=== PATIENT | male | born 1970 | race Caucasian/White ===

== ENCOUNTER 2017-01-03 13:04 | Emergency (ER) | payer OTHER ==
[2017-01-03 13:36] VITALS: RESP 18
[2017-01-03] MEDS ORDERED: SODIUM CHLORIDE 0.9% 500 ML IV STA (13:51)
--- NOTE | 2017-01-03 13:55 | ED ---
General Adult HPI - General Chief complaint: Weakness Stated complaint: Weakness/Dizziness/Tachycardia Time Seen by Provider: 01/03/17 13:05 Source: patient, RN notes reviewed Mode of arrival: wheelchair Limitations: no limitations - History of Present Illness Initial comments: This is a 46-year-old male who states today he woke up late for to drink 3 cups of coffee normally he doesn't have any coffee but if he has one of one cup at a time. Patient states when he got to work after a few hours he felt kind of disease and had some palpitations and he thought he might follow her so he sat down. Patient states he did not think he was going to pass out. Patient states he then got some tingling in his fingertips on both hands and decided to come to the emergency department. Patient states currently he is asymptomatic. Patient denies any chest pain patient denies any difficulty breathing or shortness of breath. Patient denies any headache patient denies numbness weakness. Patient denies abdominal pain patient denies nausea vomiting diarrhea. Patient denies any recent fever chills or cough - Related Data Home Medications Medication Instructions Recorded Confirmed No Known Home Medications [No 01/03/17 01/03/17 Known Home Medications] Allergies Allergy/AdvReac Type Severity Reaction Status Date / Time No Known Allergies Allergy Verified 01/03/17 13:56 Review of Systems ROS Statement: Those systems with pertinent positive or pertinent negative responses have been documented in the HPI. ROS Other: All systems not noted in ROS Statement are negative. Past Medical History Past Medical History: Hypertension Additional Past Medical History / Comment(s): left knee pain, chronic back pain History of Any Multi-Drug Resistant Organisms: None Reported Additional Past Surgical History / Comment(s): rotator cuff right shoulder Past Psychological History: No Psychological Hx Reported Smoking Status: Former smoker Past Alcohol Use History: Occasional Past Drug Use History: None Reported General Exam - General Exam Comments Initial Comments: GENERAL: Patient is well-developed and well-nourished. Patient is nontoxic and well- hydrated and is in no acute distress. ENT: Neck is soft and supple. No significant lymphadenopathy is noted. Oropharynx is clear. Moist mucous membranes. Neck has full range of motion without eliciting any pain. EYES: The sclera were anicteric and conjunctiva were pink and moist. Extraocular movements were intact and pupils were equal round and reactive to light. Eyelids were unremarkable. PULMONARY: Unlabored respirations. Good breath sounds bilaterally. No audible rales rhonchi or wheezing was noted. CARDIOVASCULAR: There is a regular rate and rhythm without any murmurs gallops or rubs. ABDOMEN: Soft and nontender with normal bowel sounds. No palpable organomegaly was noted. There is no palpable pulsatile mass. SKIN: Skin is clear with no lesions or rashes and otherwise unremarkable. NEUROLOGIC: Patient is alert and oriented x3. Cranial nerves II through XII are grossly intact. Motor and sensory are also intact. Normal speech, volume and content. Symmetrical smile. MUSCULOSKELETAL: Normal extremities with adequate strength and full range of motion. No lower extremity swelling or edema. No calf tenderness. LYMPHATICS: No significant lymphadenopathy is noted PSYCHIATRIC: Normal psychiatric evaluation. Normal interpersonal interactions appears functionally intact in deals appropriately with others. No signs of depression. Mildly anxious Limitations: no limitations Course Vital Signs 01/03/17 01/03/17 13:30 14:05 Temperature 98.8 F Pulse Rate 68 65 Respiratory 18 18 Rate Blood Pressure 139/85 140/83 O2 Sat by Pulse 98 96 Oximetry Medical Decision Making - Medical Decision Making EKG shows a normal sinus rhythm at 62 bpm MS interval 240 QRS is 106 QT intervals 404 QTC is 410. Patient's EKG shows no ST segment elevation or depression. Chest x-ray shows no acute abnormality - Lab Data Result diagrams: 01/03/17 14:00 01/03/17 14:00 Lab Results 01/03/17 01/03/17 01/03/17 Range/Units 14:00 14:00 14:00 WBC 4.7 (3.8-10.6) k/uL RBC 4.67 (4.30-5.90) m/uL Hgb 14.9 (13.0-17.5) gm/dL Hct 42.2 (39.0-53.0) % MCV 90.5 (80.0-100.0) fL MCH 32.0 (25.0-35.0) pg MCHC 35.3 (31.0-37.0) g/dL RDW 12.5 (11.5-15.5) % Plt Count 147 L (150-450) k/uL Neutrophils % 65 % Lymphocytes % 24 % Monocytes % 7 % Eosinophils % 1 % Basophils % 1 % Neutrophils # 3.0 (1.3-7.7) k/uL Lymphocytes # 1.1 (1.0-4.8) k/uL Monocytes # 0.3 (0-1.0) k/uL Eosinophils # 0.0 (0-0.7) k/uL Basophils # 0.0 (0-0.2) k/uL PT (9.0-12.0) sec INR (<1.2) APTT (22.0-30.0) sec Sodium 141 (137-145) mmol/L Potassium 4.1 (3.5-5.1) mmol/L Chloride 109 H (98-107) mmol/L Carbon Dioxide 24 (22-30) mmol/L Anion Gap 8 mmol/L BUN 16 (9-20) mg/dL Creatinine 0.98 (0.66-1.25) mg/dL Est GFR (MDRD) Af Amer >60 (>60 ml/min/1.73 sqM) Est GFR (MDRD) Non-Af >60 (>60 ml/min/1.73 sqM) Glucose 82 (74-99) mg/dL Calcium 9.0 (8.4-10.2) mg/dL Magnesium 1.8 (1.6-2.3) mg/dL Total Bilirubin 0.3 (0.2-1.3) mg/dL AST 35 (17-59) U/L ALT 39 (21-72) U/L Alkaline Phosphatase 50 (38-126) U/L Total Creatine Kinase 71 (55-170) U/L CK-MB (CK-2) 0.8 (0.0-2.4) ng/mL CK-MB (CK-2) Rel Index 1.1 Troponin I <0.012 (0.000-0.034) ng/mL Total Protein 6.5 (6.3-8.2) g/dL Albumin 4.1 (3.5-5.0) g/dL 01/03/17 Range/Units 14:00 WBC (3.8-10.6) k/uL RBC (4.30-5.90) m/uL Hgb (13.0-17.5) gm/dL Hct (39.0-53.0) % MCV (80.0-100.0) fL MCH (25.0-35.0) pg MCHC (31.0-37.0) g/dL RDW (11.5-15.5) % Plt Count (150-450) k/uL Neutrophils % % Lymphocytes % % Monocytes % % Eosinophils % % Basophils % % Neutrophils # (1.3-7.7) k/uL Lymphocytes # (1.0-4.8) k/uL Monocytes # (0-1.0) k/uL Eosinophils # (0-0.7) k/uL Basophils # (0-0.2) k/uL PT 10.7 (9.0-12.0) sec INR 1.1 (<1.2) APTT 23.4 (22.0-30.0) sec Sodium (137-145) mmol/L Potassium (3.5-5.1) mmol/L Chloride (98-107) mmol/L Carbon Dioxide (22-30) mmol/L Anion Gap mmol/L BUN (9-20) mg/dL Creatinine (0.66-1.25) mg/dL Est GFR (MDRD) Af Amer (>60 ml/min/1.73 sqM) Est GFR (MDRD) Non-Af (>60 ml/min/1.73 sqM) Glucose (74-99) mg/dL Calcium (8.4-10.2) mg/dL Magnesium (1.6-2.3) mg/dL Total Bilirubin (0.2-1.3) mg/dL AST (17-59) U/L ALT (21-72) U/L Alkaline Phosphatase (38-126) U/L Total Creatine Kinase (55-170) U/L CK-MB (CK-2) (0.0-2.4) ng/mL CK-MB (CK-2) Rel Index Troponin I (0.000-0.034) ng/mL Total Protein (6.3-8.2) g/dL Albumin (3.5-5.0) g/dL Disposition Clinical Impression: Palpitations, Dizziness Disposition: HOME SELF-CARE Condition: Good Instructions: Palpitations (ED), Lightheadedness (ED) Referrals: Esperanza Oscar MD [Primary Care Provider] - 1-2 days Time of Disposition: 15:01
[2017-01-03 14:07] VITALS: PULSE 65
[2017-01-03 14:20] LABS: Basophils % (A) 1 %; CH 31.3; CHCM 34.7; Eosinophils % (A) 1 %; HCT 42.2 % (39.0-53.0); HDW 2.56; HGB 14.9 gm/dL (13.0-17.5); Luc # (Auto) 0.16; Luc % (Auto) 3; Lymphocytes # (A) 1.1 k/uL (1.0-4.8); Lymphocytes % (A) 24 %; MCHC 35.3 g/dL (31.0-37.0); MCV 90.5 fL (80.0-100.0); Mean Platelet Volume 8.4; Monocytes # (A) 0.3 k/uL (0-1.0); Monocytes % (A) 7 %; Neutrophils % (A) 65 %; RBC 4.67 m/uL (4.30-5.90); RDW 12.5 % (11.5-15.5); WBC 4.7 k/uL (3.8-10.6); WBC (Perox) 4.44
[2017-01-03 14:28] LABS: INR 1.1 (<1.2); Partial Thromboplastin Time 23.4 sec (22.0-30.0); Prothrombin Time 10.7 sec (9.0-12.0)
--- NOTE | 2017-01-03 14:29 | XR ---
EXAMINATION TYPE: XR chest 2V DATE OF EXAM: 01/03/2017 COMPARISON: 03/06/2015 HISTORY: 46-year-old male with weakness TECHNIQUE: PA and lateral views FINDINGS: The cardiomediastinal silhouette, aorta, and pulmonary vasculature are within normal limits. Strandy perihilar atelectasis. Otherwise, lungs and pleural spaces are clear. IMPRESSION: Some strandy areas of atelectasis. No acute cardiopulmonary process.
[2017-01-03 14:30] LABS: ALT 39 U/L (21-72); AST 35 U/L (17-59); Alkaline Phosphatase 50 U/L (38-126); Anion Gap 8 mmol/L; Blood Urea Nitrogen 16 mg/dL (9-20); Carbon Dioxide 24 mmol/L (22-30); Chloride 109 mmol/L (98-107); Glucose 82 mg/dL (74-99); Magnesium 1.8 mg/dL (1.6-2.3); Non-African American GFR(MDRD) >60 (>60 ml/min/1.73 sqM); Potassium 4.1 mmol/L (3.5-5.1); Sodium 141 mmol/L (137-145); Total Bilirubin 0.3 mg/dL (0.2-1.3); Total Protein 6.5 g/dL (6.3-8.2)
[2017-01-03 14:43] LABS: Creatine Kinase 71 U/L (55-170)
[2017-01-03 14:56] LABS: Creatine Kinase MB 0.8 ng/mL (0.0-2.4); Troponin I <0.012 ng/mL (0.000-0.034)
[2017-01-03 15:06] VITALS: BP 131/76; TEMP 98
== END 2017-01-03 15:09 | disposition home or self-care (01) ==
LOC: EC 13:04
DX: R00.2 Palpitations (principal); R42 Dizziness and giddiness; Z87.891 Personal history of nicotine dependence
CPT/HCPCS: 36415; 71020; 80053; 82550; 82553; 83735; 84484; 85025; 85610; 85730; 93005; 96360; 99285

== ENCOUNTER 2018-03-05 10:21 | Observation (INO) | payer OTHER ==
[2018-03-05] MEDS ORDERED: ASPIRIN 81 MG PO STA (10:31)
[2018-03-05] MEDS ORDERED: NITROGLYCERIN OINT 1 INCH/GM PACKET TOPICAL STA (10:31)
[2018-03-05] MEDS ORDERED: NITROGLYCERIN SL TABS 0.4 MG TAB SUBLINGUAL STA (10:31)
--- NOTE | 2018-03-05 10:34 | ED ---
General Adult HPI - General Chief complaint: Arrhythmia/Palpitations Stated complaint: racing heart rate Time Seen by Provider: 03/05/18 10:25 Source: patient, RN notes reviewed Mode of arrival: ambulatory Limitations: no limitations - History of Present Illness Initial comments: This is a 47-year-old male who presents emergency Department complaining of chest pain since this morning. Patient states his pressure sensation and then he feels as though his heart is racing. Patient also states he feels like it skips a beat occasionally. Patient stated that he had a sensation that he had not been on the monitor did show a PVC. Patient denies any difficulty breathing or shortness of breath. Patient denies any sweating sensation. Patient states the pain is at the bottom of his sternum and it is a pressure sensation. Patient denies any nausea vomiting. Patient denies any abdominal pain. Patient denies any problem eating. Patient states she had these symptoms in the past but has not followed up as he says he stopped.. Patient denies smoking currently but he was a smoker prior. Patient denies any calf pain or leg swelling. Patient states she's had high blood pressure but he takes no medicine at this time. - Related Data Home Medications Medication Instructions Recorded Confirmed No Known Home Medications 03/05/18 03/05/18 Allergies Allergy/AdvReac Type Severity Reaction Status Date / Time No Known Allergies Allergy Verified 03/05/18 10:52 Review of Systems ROS Statement: Those systems with pertinent positive or pertinent negative responses have been documented in the HPI. ROS Other: All systems not noted in ROS Statement are negative. Past Medical History Past Medical History: Hypertension Additional Past Medical History / Comment(s): left knee pain, chronic back pain History of Any Multi-Drug Resistant Organisms: None Reported Additional Past Surgical History / Comment(s): rotator cuff right shoulder Past Psychological History: No Psychological Hx Reported Smoking Status: Former smoker Past Alcohol Use History: Occasional Past Drug Use History: None Reported General Exam - General Exam Comments Initial Comments: GENERAL: Patient is well-developed and well-nourished. Patient is nontoxic and well- hydrated and is in mild distress. ENT: Neck is soft and supple. No significant lymphadenopathy is noted. Oropharynx is clear. Moist mucous membranes. Neck has full range of motion without eliciting any pain. EYES: The sclera were anicteric and conjunctiva were pink and moist. Extraocular movements were intact and pupils were equal round and reactive to light. Eyelids were unremarkable. PULMONARY: Unlabored respirations. Good breath sounds bilaterally. No audible rales rhonchi or wheezing was noted. CARDIOVASCULAR: There is a regular rate and rhythm without any murmurs gallops or rubs. ABDOMEN: Soft and nontender with normal bowel sounds. No palpable organomegaly was noted. There is no palpable pulsatile mass. SKIN: Skin is clear with no lesions or rashes and otherwise unremarkable. NEUROLOGIC: Patient is alert and oriented x3. Cranial nerves II through XII are grossly intact. Motor and sensory are also intact. Normal speech, volume and content. Symmetrical smile. MUSCULOSKELETAL: Normal extremities with adequate strength and full range of motion. LYMPHATICS: No significant lymphadenopathy is noted PSYCHIATRIC: Normal psychiatric evaluation. Normal interpersonal interactions appears functionally intact in deals appropriately with others. No signs of depression. No signs of anxiety. Limitations: no limitations Course Vital Signs 03/05/18 10:22 Temperature 97.5 F L Pulse Rate 113 H Respiratory 18 Rate Blood Pressure 167/94 O2 Sat by Pulse 97 Oximetry Medical Decision Making - Medical Decision Making EKG shows a junctional rhythm at 107 bpm QRS is 94 QT interval 3:30 QTC is 451. Patient's EKG shows no ST segment elevation or depression - Lab Data Result diagrams: 03/05/18 10:48 03/05/18 10:48 Lab Results 03/05/18 03/05/18 03/05/18 Range/Units 10:48 10:48 10:48 WBC 5.8 (3.8-10.6) k/uL RBC 5.21 (4.30-5.90) m/uL Hgb 15.8 (13.0-17.5) gm/dL Hct 46.9 (39.0-53.0) % MCV 90.1 (80.0-100.0) fL MCH 30.3 (25.0-35.0) pg MCHC 33.6 (31.0-37.0) g/dL RDW 12.4 (11.5-15.5) % Plt Count 153 (150-450) k/uL Neutrophils % 54 % Lymphocytes % 35 % Monocytes % 7 % Eosinophils % 1 % Basophils % 1 % Neutrophils # 3.1 (1.3-7.7) k/uL Lymphocytes # 2.0 (1.0-4.8) k/uL Monocytes # 0.4 (0-1.0) k/uL Eosinophils # 0.1 (0-0.7) k/uL Basophils # 0.0 (0-0.2) k/uL PT (9.0-12.0) sec INR (<1.2) APTT (22.0-30.0) sec D-Dimer (<0.60) mg/L FEU Sodium 143 (137-145) mmol/L Potassium 4.3 (3.5-5.1) mmol/L Chloride 110 H (98-107) mmol/L Carbon Dioxide 22 (22-30) mmol/L Anion Gap 11 mmol/L BUN 16 (9-20) mg/dL Creatinine 0.69 (0.66-1.25) mg/dL Est GFR (CKD-EPI)AfAm >90 (>60 ml/min/1.73 sqM) Est GFR (CKD-EPI)NonAf >90 (>60 ml/min/1.73 sqM) Glucose 107 H (74-99) mg/dL Calcium 10.0 (8.4-10.2) mg/dL Magnesium 1.8 (1.6-2.3) mg/dL Total Bilirubin 0.7 (0.2-1.3) mg/dL AST 41 (17-59) U/L ALT 33 (21-72) U/L Alkaline Phosphatase 53 (38-126) U/L Total Creatine Kinase 50 L (55-170) U/L CK-MB (CK-2) 0.6 (0.0-2.4) ng/mL CK-MB (CK-2) Rel Index 1.2 Troponin I <0.012 (0.000-0.034) ng/mL Total Protein 7.9 (6.3-8.2) g/dL Albumin 4.7 (3.5-5.0) g/dL 03/05/18 Range/Units 10:48 WBC (3.8-10.6) k/uL RBC (4.30-5.90) m/uL Hgb (13.0-17.5) gm/dL Hct (39.0-53.0) % MCV (80.0-100.0) fL MCH (25.0-35.0) pg MCHC (31.0-37.0) g/dL RDW (11.5-15.5) % Plt Count (150-450) k/uL Neutrophils % % Lymphocytes % % Monocytes % % Eosinophils % % Basophils % % Neutrophils # (1.3-7.7) k/uL Lymphocytes # (1.0-4.8) k/uL Monocytes # (0-1.0) k/uL Eosinophils # (0-0.7) k/uL Basophils # (0-0.2) k/uL PT 10.9 (9.0-12.0) sec INR 1.1 (<1.2) APTT 20.3 L (22.0-30.0) sec D-Dimer 0.18 (<0.60) mg/L FEU Sodium (137-145) mmol/L Potassium (3.5-5.1) mmol/L Chloride (98-107) mmol/L Carbon Dioxide (22-30) mmol/L Anion Gap mmol/L BUN (9-20) mg/dL Creatinine (0.66-1.25) mg/dL Est GFR (CKD-EPI)AfAm (>60 ml/min/1.73 sqM) Est GFR (CKD-EPI)NonAf (>60 ml/min/1.73 sqM) Glucose (74-99) mg/dL Calcium (8.4-10.2) mg/dL Magnesium (1.6-2.3) mg/dL Total Bilirubin (0.2-1.3) mg/dL AST (17-59) U/L ALT (21-72) U/L Alkaline Phosphatase (38-126) U/L Total Creatine Kinase (55-170) U/L CK-MB (CK-2) (0.0-2.4) ng/mL CK-MB (CK-2) Rel Index Troponin I (0.000-0.034) ng/mL Total Protein (6.3-8.2) g/dL Albumin (3.5-5.0) g/dL Disposition Clinical Impression: Chest pain, PVCs (premature ventricular contractions) Disposition: ADMITTED IP TO THIS [facility] Referrals: Esperanza Oscar MD [Primary Care Provider] - 1-2 days Time of Disposition: 13:09
[2018-03-05 11:12] LABS: Basophils % (A) 1 %; Eosinophils # (A) 0.1 k/uL (0-0.7); Eosinophils % (A) 1 %; HCT 46.9 % (39.0-53.0); HGB 15.8 gm/dL (13.0-17.5); Lymphocytes % (A) 35 %; MCH 30.3 pg (25.0-35.0); MCHC 33.6 g/dL (31.0-37.0); MCV 90.1 fL (80.0-100.0); Mean Platelet Volume 8.6; Monocytes # (A) 0.4 k/uL (0-1.0); Monocytes % (A) 7 %; Neutrophils # (A) 3.1 k/uL (1.3-7.7); Neutrophils % (A) 54 %; Platelet Count 153 k/uL (150-450); RBC 5.21 m/uL (4.30-5.90); RDW 12.4 % (11.5-15.5); WBC 5.8 k/uL (3.8-10.6)
--- NOTE | 2018-03-05 11:19 | XR ---
EXAMINATION TYPE: XR chest 2V DATE OF EXAM: 03/05/2018 COMPARISON: 01/03/2017 INDICATION: Chest pain, elevated heart rate TECHNIQUE: Frontal and lateral views of the chest are obtained. FINDINGS: The heart size is normal. The pulmonary vasculature is normal. The lungs are clear. IMPRESSION: 1. No acute pulmonary process.
[2018-03-05 11:38] LABS: ALT 33 U/L (21-72); AST 41 U/L (17-59); Albumin 4.7 g/dL (3.5-5.0); Alkaline Phosphatase 53 U/L (38-126); Anion Gap 11 mmol/L; Blood Urea Nitrogen 16 mg/dL (9-20); Carbon Dioxide 22 mmol/L (22-30); Chloride 110 mmol/L (98-107); Creatine Kinase 50 U/L (55-170); Glucose 107 mg/dL (74-99); Magnesium 1.8 mg/dL (1.6-2.3); Potassium 4.3 mmol/L (3.5-5.1); Sodium 143 mmol/L (137-145); Total Bilirubin 0.7 mg/dL (0.2-1.3); Total Protein 7.9 g/dL (6.3-8.2)
[2018-03-05 11:49] LABS: Creatine Kinase MB 0.6 ng/mL (0.0-2.4); Troponin I <0.012 ng/mL (0.000-0.034)
[2018-03-05 11:53] LABS: D-Dimer 0.18 mg/L FEU (<0.60); INR 1.1 (<1.2); Partial Thromboplastin Time 20.3 sec (22.0-30.0); Prothrombin Time 10.9 sec (9.0-12.0)
[2018-03-05] MEDS ORDERED: NITROGLYCERIN SL TABS 0.4 MG TAB SUBLINGUAL PRN (13:09)
[2018-03-05 16:50] LABS: Creatine Kinase 35 U/L (55-170)
[2018-03-05 17:03] LABS: Creatine Kinase MB 0.5 ng/mL (0.0-2.4); Troponin I <0.012 ng/mL (0.000-0.034)
[2018-03-05] MEDS: NITROGLYCERIN OINT 1 INCH/GM PACKET TOPICAL SCH (17:34)
--- NOTE | 2018-03-05 18:10 | P.HPIM ---
History of Present Illness 47-year-old man came in with the complaints of epigastric abdominal burning sensation along with the symptoms of heart racing. The started after eating food normally happens after eating food and he ate a hard bed which resulted in the symptoms he also felt his heart is racing at the time patient heart rate is 107 sinus tachycardia here in the hospital. Patient denied any other chest pain denied any fever chills shortness of breath lightheadedness associated with that patient denied and diaphoresis asserted that. Patient had some nausea denied any vomiting denied any fever chills dysuria cough chest pain nonpleuritic in nature. Review of Systems REVIEW OF SYSTEMS: CONSTITUTIONAL: No fever, no malaise, no fatigue. HEENT: No recent visual problems or hearing problems. Denied any sore throat. CARDIOVASCULAR: No orthopnea, PND, no palpitations, no syncope. PULMONARY: No shortness of breath, no cough, no hemoptysis. GASTROINTESTINAL: No diarrhea, no nausea, no vomiting, no abdominal pain. Normoactive bowel sounds. NEUROLOGICAL: No headaches, no weakness, no numbness. HEMATOLOGICAL: Denies any bleeding or petechiae. GENITOURINARY: Denies any burning micturition, frequency, or urgency. MUSCULOSKELETAL/RHEUMATOLOGICAL: Denies any joint pain, swelling, or any muscle pain. ENDOCRINE: Denies any polyuria or polydipsia. The rest of the 14-point review of systems is negative. Past Medical History Past Medical History: GERD/Reflux, Hypertension, Osteoarthritis (OA) Additional Past Medical History / Comment(s): age 13 test positive for tb- stated was treaed for 1 year. left knee pain, chronic back pain, past gerd, "abd cyst", "skipped beats" pt stated" i"ve noticed that after i eat i get upper abd muscle spasms and thats alos when i notice the skipped beats", difficulty sleeping-"drinks 2-3 24 ounce beers nightly to help him sleep" History of Any Multi-Drug Resistant Organisms: None Reported Additional Past Surgical History / Comment(s): rotator cuff right shoulder, egd Past Anesthesia/Blood Transfusion Reactions: No Reported Reaction Smoking Status: Former smoker - Past Family History Mother Additional Family Medical History / Comment(s): from aneurysm, had low sodium Father History Unknown: Yes Additional Family Medical History / Comment(s): dad when pt was very young, no known hx Medications and Allergies Home Medications Medication Instructions Recorded Confirmed Type No Known Home Medications 03/05/18 03/05/18 History Allergies Allergy/AdvReac Type Severity Reaction Status Date / Time No Known Allergies Allergy Verified 03/05/18 10:52 Physical Exam Vitals: Vital Signs Temp Pulse Pulse Resp BP BP Pulse Ox 03/05/18 14:54 98.7 F 62 18 170/87 98 03/05/18 14:05 78 17 150/84 95 03/05/18 10:22 97.5 F L 113 H 18 167/94 97 Intake and Output 03/05/18 03/05/18 03/05/18 06:59 14:59 22:59 Intake Total 702 Balance 702 Intake: Oral 702 Other: # Voids 2 Weight 81.3 kg PHYSICAL EXAMINATION: GENERAL: The patient is alert and oriented x3, not in any acute distress. Well developed, well nourished. HEENT: Pupils are round and equally reacting to light. EOMI. No scleral icterus. No conjunctival pallor. Normocephalic, atraumatic. No pharyngeal erythema. No thyromegaly. CARDIOVASCULAR: S1 and S2 present. No murmurs, rubs, or gallops. PULMONARY: Chest is clear to auscultation, no wheezing or crackles. ABDOMEN: Soft, nontender, nondistended, normoactive bowel sounds. No palpable organomegaly. MUSCULOSKELETAL: No joint swelling or deformity. EXTREMITIES: No cyanosis, clubbing, or pedal edema. NEUROLOGICAL: Gross neurological examination did not reveal any focal deficits. SKIN: No rashes. Results CBC & Chem 7: 03/05/18 10:48 03/05/18 10:48 Labs: Abnormal Lab Results - Last 24 Hours (Table) 03/05/18 03/05/18 03/05/18 Range/Units 10:48 10:48 10:48 APTT 20.3 L (22.0-30.0) sec Chloride 110 H (98-107) mmol/L Glucose 107 H (74-99) mg/dL Total Creatine Kinase 50 L (55-170) U/L 03/05/18 Range/Units 15:59 APTT (22.0-30.0) sec Chloride (98-107) mmol/L Glucose (74-99) mg/dL Total Creatine Kinase 35 L (55-170) U/L Thrombosis Risk Factor Assmnt - Choose All That Apply Any of the Below Risk Factors Present?: No Assessment and Plan Plan: -Chest pain: Rule out acute concurrent syndromes, patient appears to have gastritis or peptic is disease patient was started on Protonix -Palpitations with junctional rhythm: No electrolyte abnormalities, TSH within normal limits cardiology will evaluate the patient
[2018-03-05 19:25] VITALS: RESP 16
[2018-03-05] MEDS: PANTOPRAZOLE 40 MG/10 ML VIAL IVP SCH (21:29)
[2018-03-05 23:16] LABS: Creatine Kinase 33 U/L (55-170)
[2018-03-05 23:29] LABS: Creatine Kinase MB 0.4 ng/mL (0.0-2.4); Troponin I <0.012 ng/mL (0.000-0.034)
[2018-03-06] MEDS: NITROGLYCERIN OINT 1 INCH/GM PACKET TOPICAL SCH ×3 (00:31→11:23)
[2018-03-06 02:51] LABS: Cholesterol 191 mg/dL (<200); HDL Cholesterol 62 mg/dL (40-60); LDL Cholesterol,Calculated 86 mg/dL (0-99); Triglycerides 214 mg/dL (<150)
--- NOTE | 2018-03-06 08:16 | P.CRDCN ---
History of Present Illness Consult date: 03/06/18 Chief complaint: Chest discomfort History of present illness: This is a pleasant 47-year-old gentleman with no significant past medical history of diabetes or hypertension or dyslipidemia nor coronary artery disease who presented to the hospital complaining of chest discomfort. He was in his usual state of health where he ate his dinner yesterday and started experiencing discomfort in the epigastric area, as a dull kind of discomfort, without any radiation to the arm or neck or shoulders and without any associated symptoms of sweating, shortness of breath, dizziness or lightheaded this, or syncope. The patient drove his bike all the way here to the hospital and he presented to the emergency room. On the way while he was riding his bike he did not have any symptoms. When he arrived he was tachycardic and he was in junctional rhythm with heart rate around 100 and subsequently the patient was in sinus rhythm with normal heart rate and without any ischemic ST or T-wave abnormalities concerning for ischemia. The cardiac enzymes were checked and came in also unremarkable. The patient continues to be asymptomatic during his hospital stay. I did discuss with the patient the results of the workup including EKG and cardiac enzymes and the need for stress test to rule out any severe underlying CAD. Because its a weekend, and because the patient is asymptomatic, he would like to be discharged home and get the workup done as an outpatient. Past Medical History Past Medical History: GERD/Reflux, Hypertension, Osteoarthritis (OA) Additional Past Medical History / Comment(s): age 13 test positive for tb- stated was treaed for 1 year. left knee pain, chronic back pain, past gerd, "abd cyst", "skipped beats" pt stated" i"ve noticed that after i eat i get upper abd muscle spasms and thats alos when i notice the skipped beats", difficulty sleeping-"drinks 2-3 24 ounce beers nightly to help him sleep" History of Any Multi-Drug Resistant Organisms: None Reported Additional Past Surgical History / Comment(s): rotator cuff right shoulder, egd Past Anesthesia/Blood Transfusion Reactions: No Reported Reaction Smoking Status: Former smoker - Past Family History Mother Additional Family Medical History / Comment(s): from aneurysm, had low sodium Father History Unknown: Yes Additional Family Medical History / Comment(s): dad when pt was very young, no known hx Medications and Allergies Home Medications Medication Instructions Recorded Confirmed Type No Known Home Medications 03/05/18 03/05/18 History Allergies Allergy/AdvReac Type Severity Reaction Status Date / Time No Known Allergies Allergy Verified 03/05/18 10:52 Physical Exam Vitals: Vital Signs Temp Pulse Pulse Resp BP BP Pulse Ox 03/06/18 03:44 16 03/06/18 03:10 98.2 F 62 16 129/77 97 03/06/18 00:00 98.5 F 65 16 154/95 97 03/05/18 19:54 16 03/05/18 19:20 98.6 F 70 16 129/85 97 03/05/18 14:54 98.7 F 62 18 170/87 98 03/05/18 14:05 78 17 150/84 95 03/05/18 10:22 97.5 F L 113 H 18 167/94 97 Intake and Output 03/05/18 03/06/18 03/06/18 22:59 06:59 14:59 Intake Total 702 Balance 702 Intake: Oral 702 Other: # Voids 2 2 - Constitutional General appearance: no acute distress - Respiratory Respiratory: bilateral: CTA - Cardiovascular Rhythm: regular Heart sounds: normal: S1, S2 Results 03/05/18 10:48 03/05/18 10:48 Cardiac Enzymes 03/05/18 03/05/18 03/05/18 Range/Units 10:48 10:48 15:59 AST 41 (17-59) U/L CK-MB (CK-2) 0.6 0.5 (0.0-2.4) ng/mL Troponin I <0.012 <0.012 (0.000-0.034) ng/mL 03/05/18 Range/Units 22:49 AST (17-59) U/L CK-MB (CK-2) 0.4 (0.0-2.4) ng/mL Troponin I <0.012 (0.000-0.034) ng/mL Coagulation 03/05/18 Range/Units 10:48 PT 10.9 (9.0-12.0) sec APTT 20.3 L (22.0-30.0) sec Lipids 03/05/18 Range/Units 10:48 Triglycerides 214 H (<150) mg/dL Cholesterol 191 (<200) mg/dL HDL Cholesterol 62 H (40-60) mg/dL CBC 03/05/18 Range/Units 10:48 WBC 5.8 (3.8-10.6) k/uL RBC 5.21 (4.30-5.90) m/uL Hgb 15.8 (13.0-17.5) gm/dL Hct 46.9 (39.0-53.0) % Plt Count 153 (150-450) k/uL Comprehensive Metabolic Panel 03/05/18 Range/Units 10:48 Sodium 143 (137-145) mmol/L Potassium 4.3 (3.5-5.1) mmol/L Chloride 110 H (98-107) mmol/L Carbon Dioxide 22 (22-30) mmol/L BUN 16 (9-20) mg/dL Creatinine 0.69 (0.66-1.25) mg/dL Glucose 107 H (74-99) mg/dL Calcium 10.0 (8.4-10.2) mg/dL AST 41 (17-59) U/L ALT 33 (21-72) U/L Alkaline Phosphatase 53 (38-126) U/L Total Protein 7.9 (6.3-8.2) g/dL Albumin 4.7 (3.5-5.0) g/dL Current Medications Generic Name Dose Route Start Last Admin Trade Name Freq PRN Reason Stop Dose Admin Aspirin 325 mg 03/06/18 09:00 Aspirin PO DAILY [facility] Nitroglycerin 1 inch 03/05/18 18:00 03/06/18 05:04 Nitro-Bid Oint TOPICAL Not Given Q6HR [facility] Nitroglycerin 0.4 mg 03/05/18 13:09 Nitrostat SUBLINGUAL Q5M PRN Chest Pain Pantoprazole Sodium 40 mg 03/05/18 21:00 03/05/18 21:29 Protonix IVP 40 mg BID [facility] Administration Intake and Output 03/05/18 03/06/18 03/06/18 22:59 06:59 14:59 Intake Total 702 Balance 702 Intake: Oral 702 Other: # Voids 2 2 03/05/18 10:48 03/05/18 10:48 Assessment and Plan Assessment: Assessment #1 epigastric discomfort Plan #1 the patient was ruled out for acute coronary event #2 he continues to be asymptomatic during his stay #3 further cardiac risk of standpoint overview he can be discharged home #4 workup as an outpatient including stress test and echocardiogram. Thank you for allowing us participate in his care
[2018-03-06] MEDS ORDERED: ASPIRIN 325 MG TAB PO SCH (09:00)
[2018-03-06] MEDS: PANTOPRAZOLE 40 MG/10 ML VIAL IVP SCH (09:27)
[2018-03-06 12:08] VITALS: BP 139/83; PULSE 71; TEMP 98.5
--- NOTE | 2018-03-06 16:47 | P.DS ---
Providers Date of admission: 03/05/18 13:10 Attending physician: Whit Santiago Consults: 03/05/18 13:10 Consult Physician Urgent Consulting Provider: [facility] Consult Reason/Comments: Chest pain, PVCs Do you want consulting provider notified?: Yes Primary care physician: Dayne Mata [facility] Course: Patient was admitted for chest pain which is secondary to possible gastritis or gastric reflux disease patient was ruled out acute consults was a valid by cardiology cleared by cardiology patient will follow with cardiology as an outpatient patient will be discharged on Prilosec for about a week. For rest of his chronic medical problems and hospitalization course precipitates. From yesterday. PHYSICAL EXAMINATION: GENERAL: The patient is alert and oriented x3, not in any acute distress. Well developed, well nourished. HEENT: Pupils are round and equally reacting to light. EOMI. No scleral icterus. No conjunctival pallor. Normocephalic, atraumatic. No pharyngeal erythema. No thyromegaly. CARDIOVASCULAR: S1 and S2 present. No murmurs, rubs, or gallops. PULMONARY: Chest is clear to auscultation, no wheezing or crackles. ABDOMEN: Soft, nontender, nondistended, normoactive bowel sounds. No palpable organomegaly. MUSCULOSKELETAL: No joint swelling or deformity. EXTREMITIES: No cyanosis, clubbing, or pedal edema. NEUROLOGICAL: Gross neurological examination did not reveal any focal deficits. SKIN: No rashes. Plan - Discharge Summary Discharge Rx Participant: Yes New Discharge Prescriptions: New Omeprazole [PriLOSEC] 40 mg PO AC-BRKFST #14 capsule. Discharge Medication List Omeprazole [PriLOSEC] 40 mg PO AC-BRKFST #14 capsule. 03/06/18 [Rx] Follow up Appointment(s)/Referral(s): Esperanza Oscar MD [Primary Care Provider] - 1-2 days Alo Foreman MD [STAFF PHYSICIAN] - 03/15/18 8:45 am () Discharge Disposition: HOME SELF-CARE
== END 2018-03-06 13:58 | disposition home or self-care (01) ==
LOC: EC 10:21 → 3OBS 13:10
PROVIDERS: ADMIT Internal Medicine; ATTEND Internal Medicine
DX: R07.89 Other chest pain (principal); R10.13 Epigastric pain; I49.3 Ventricular premature depolarization; R11.0 Nausea; I10 Essential (primary) hypertension; G89.29 Other chronic pain; M54.9 Dorsalgia, unspecified; K21.9 Gastro-esophageal reflux disease without esophagitis; G47.9 Sleep disorder, unspecified; M19.90 Unspecified osteoarthritis, unspecified site; Z87.891 Personal history of nicotine dependence; Z86.11 Personal history of tuberculosis; Z82.49 Family history of ischemic heart disease and other diseases of the circulatory system
CPT/HCPCS: 93005 ×2; 96374; 96376; 99285; 36415; 85379; 80061; 80053; 84443; 82550; 82553; 83735; 84484; 85025; 85610; 85730; 71046; G0378 ×2; C9113 ×2

== ENCOUNTER → 2019-08-03 | Outpatient (CLI) | payer OTHER ==
--- NOTE | 2019-08-03 11:14 | XR ---
EXAMINATION TYPE: XR Hip Complete LT DATE OF EXAM: 08/03/2019 CLINICAL HISTORY: Left hip pain with no known injury TECHNIQUE: AP and frogleg views of the left hip are obtained. COMPARISON: None. FINDINGS: There is no acute fracture/dislocation evident in the left hip. The joint space in the le ft hip appears aligned with mild cephalad joint space narrowing and acetabular roof sclerosis. No ca m deformity seen. The overlying soft tissue appears unremarkable. IMPRESSION: There is no acute fracture or dislocation in the left hip.
== END | disposition home or self-care (01) ==
LOC: RADXRMAIN 10:07
PROVIDERS: ATTEND Internal Medicine
DX: M25.552 Pain in left hip (principal)
CPT/HCPCS: 73502

== ENCOUNTER → 2019-10-28 | Outpatient (CLI) | payer OTHER | END | disposition home or self-care (01) | LOC: RADECHMAIN 11:48 | PROVIDERS: ATTEND Internal Medicine | DX: R00.2 Palpitations (principal); R00.1 Bradycardia, unspecified; R00.0 Tachycardia, unspecified | CPT/HCPCS: 93225; 93226 ==

== ENCOUNTER → 2020-06-29 | Outpatient (CLI) | payer OTHER ==
--- NOTE | 2020-06-29 08:10 | MR ---
EXAMINATION TYPE: MR hip LT wo con DATE OF EXAM: 06/29/2020 COMPARISON: Left hip x-ray August 03, 2019 HISTORY: Left hip pain, locking, limited movement Standard multiplanar, multisequence MRI departmental protocol Multiplanar, multisequence images of the pelvis focusing on left hip were acquired. FINDINGS: Hip joint space is symmetric and maintained. No significant joint effusion bilaterally. No serpiginous low T1 signal to suggest avascular necrosis. Femoral head shapes are maintained. Mild jen tabular spurring laterally and both hips. There is however asymmetric increased T2 signal involving t he anterior superior portion of the labrum over roughly 2.4 cm area transversely by 1.8 cm area crani ocaudal dimension by 3.2 cm AP. Labrum appears grossly intact given the limitation of nonarthrogram s tudy. No suspicious groin adenopathy or hernia. Muscle bulk is symmetric and felt within normal limits bila terally. No suspicious edema over greater or lesser trochanters bilaterally. Urinary bladder appears within normal limits. No suspicious bowel dilatation. Prostate gland within n ormal limits. No concerning pelvic fluid collection or adenopathy. Sacroiliac joints are maintained. IMPRESSION: Mild degenerative changes left hip. Asymmetric osseous contusion and/or abnormal bone mar row edema involving the anterior superior portion of the acetabulum, finding may be related to altere d walking mechanics related to pain.
== END | disposition home or self-care (01) ==
LOC: RADMRIMAIN 06:41
PROVIDERS: ATTEND Internal Medicine
DX: M16.12 Unilateral primary osteoarthritis, left hip (principal)

== ENCOUNTER 2020-09-05 07:36 | Day surgery (SDC) | payer OTHER ==
[2020-09-04 11:44] VITALS: BMI 26.4
[~2020-09-05 07:36] MED LIST: LACTATED RINGERS 1,000 ML IV SCH; LIDOCAINE 1% (10MG/ML) FOR IV START INTRADERMA PRN
[2020-09-05 07:52] VITALS: TEMP 97
[2020-09-05] MEDS ORDERED: LACTATED RINGERS 1,000 ML IV ONE (08:15)
[2020-09-05] MEDS ORDERED: LIDOCAINE 1% INJ 10MG/ML (20 ML MDV) ONE (08:27)
[2020-09-05] MEDS ORDERED: MIDAZOLAM 2 MG/2 ML VIAL ONE (08:27)
[2020-09-05] MEDS ORDERED: PROPOFOL 10 MG/ML 20 ML VIAL IV ONE (08:27)
--- NOTE | 2020-09-05 08:40 | P.PCN ---
Date of Procedure: 09/05/20 Procedure(s) Performed: BRIEF HISTORY: Patient is a 50-year-old, pleasant, male scheduled for an upper endoscopy as a part of evaluation of intermittent dysphagia, passive regurgitation and occasional heartburn for the last 10 years duration. PROCEDURE PERFORMED: Esophagogastroduodenoscopy with biopsy. PREOPERATIVE DIAGNOSIS: GERD/intermittent dysphagia to solids. IV sedation per anesthesia. PROCEDURE: After informed consent was obtained, the patient was brought into the endoscopy unit. IV sedation was administered by Anesthesia under continuous monitoring. Initially the Olympus GIF-140 video endoscope was inserted into the mouth. Esophagus intubated without any difficulty. It was gradually advanced into the stomach and duodenum and carefully examined. The bulb and the second part of the duodenum appeared normal. The scope at this time was withdrawn to the stomach, adequately insufflated with air, and upon careful examination, mucosa of the antrum, and mild gastritis and biopsies were done from this area. The body, cardia and the fundus appeared normal. The scope was then withdrawn i nto the esophagus. Small hiatal hernia noted. The GE junction was located at 40 cm from the incisors. There were linear erosions and ulcerations in the distal esophagus consistent with LA grade C reflux esophagitis. Early distal esophageal stricture identified at the GE junction. The esophagus appeared normal. The the patient tolerated the procedure well. IMPRESSION: 1. Early distal esophageal stricture. 2. Linear erosions and ulcerations in the distal esophagus consistent with LA grade C reflux esophagitis 3. Small hiatal hernia and mild antral gastritis. RECOMMENDATIONS: The findings of this examination were discussed with the patient as well as his family. He was advised to follow with the biopsy results. He will be started on Prilosec 20 mg twice daily to be taken half hour before breakfast and dinnertime and follow antireflux measures. He'll be seen in office in 3 months and will plan a repeat upper endoscopy in 3-6 months.
[2020-09-05 09:00] VITALS: BP 124/81; PULSE 66; RESP 16
== END 2020-09-05 09:32 | disposition home or self-care (01) ==
LOC: ORWHC2ENDO 07:36
PROVIDERS: ATTEND Internal Medicine Gastroenterology
DX: K22.2 Esophageal obstruction (principal); K21.9 Gastro-esophageal reflux disease without esophagitis; K44.9 Diaphragmatic hernia without obstruction or gangrene; I10 Essential (primary) hypertension; K29.50 Unspecified chronic gastritis without bleeding; K22.10 Ulcer of esophagus without bleeding; Z98.890 Other specified postprocedural states; Z79.899 Other long term (current) drug therapy
CPT/HCPCS: 88305; 43239; J2250; J2001; J2704

== ENCOUNTER 2021-01-11 07:03 | Day surgery (SDC) | payer OTHER ==
[2021-01-08 13:47] VITALS: BMI 26.4
[2021-01-11 07:32] VITALS: TEMP 97.8
[2021-01-11] MEDS ORDERED: LACTATED RINGERS 1,000 ML IV ONE (07:38)
[2021-01-11] MEDS ORDERED: PROPOFOL 10 MG/ML 20 ML VIAL IV ONE (08:06)
[2021-01-11] MEDS ORDERED: LIDOCAINE 1% INJ 10MG/ML (20 ML MDV) ONE (08:06)
--- NOTE | 2021-01-11 08:38 | P.PCN ---
Date of Procedure: 01/11/21 Procedure(s) Performed: BRIEF HISTORY: Patient is a 50-year-old pleasant white male scheduled for an elective colonoscopy as a part of screening for colon rectal neoplasia. PROCEDURE PERFORMED: Colonoscopy. PREOPERATIVE DIAGNOSIS: Screening for colon cancer. IV sedation per Anesthesia. PROCEDURE: After informed consent was obtained, the patient, was brought into the endoscopy unit. IV sedation was administered by Anesthesia under continuous monitoring. Digital rectal examination was normal. Initially the Olympus CF-160 flexible video colonoscope was then inserted in the rectum, gradually advanced into the cecum without any difficulty. Careful examination was performed as the scope was gradually being withdrawn. Ileocecal valve and the appendiceal orifice were visualized and appeared normal. Prep was excellent. Mucosa of the cecum, ascending colon, transverse colon, descending colon, sigmoid colon, and rectum appeared normal. Retroflexion was performed in the rectum and no lesions were seen. The patient tolerated the procedure well. IMPRESSION: Normal-appearing colon from rectum to cecum with no hence of colorectal neoplasia. RECOMMENDATIONS: Findings of this examination were discussed with the patient as well as his family. He was advised to have a repeat screening colonoscopy in 10 years.
[2021-01-11 09:32] VITALS: BP 118/74; PULSE 88; RESP 16
== END 2021-01-11 09:33 | disposition home or self-care (01) ==
LOC: ORWHC2ENDO 07:03
PROVIDERS: ATTEND Internal Medicine Gastroenterology
DX: Z12.11 Encounter for screening for malignant neoplasm of colon (principal); K21.9 Gastro-esophageal reflux disease without esophagitis; I10 Essential (primary) hypertension; Z87.891 Personal history of nicotine dependence; Z79.899 Other long term (current) drug therapy
CPT/HCPCS: J2001; J2704; G0121

== ENCOUNTER 2021-12-02 08:48 | Emergency (ER) | payer OTHER ==
[2021-12-02 08:54] VITALS: BP 140/84; PULSE 76; RESP 18; TEMP 98.1
--- NOTE | 2021-12-02 09:41 | ED ---
Lower Extremity Injury HPI - General Chief Complaint: Extremity Injury, Lower Stated Complaint: Knee pain Time Seen by Provider: 12/02/21 09:01 Source: patient, RN notes reviewed Mode of arrival: ambulatory Limitations: no limitations - History of Present Illness Initial Comments: This a 51-year-old male presents emergency Department chief complaint of right knee pain. Patient states he injured it when he stepped awkwardly yesterday walking his dog. Patient states that he has pain with weightbearing he has noticed significant discomfort with passive range of motion right knee no swelling no redness. Patient states that he was told him meniscus in the past. Patient is waiting for an MRI with his specialist. Denies any popping clicking or any giving out sensation. He states that he is able to walk up stairs but states are not certain is much worse. - Related Data Home Medications Medication Instructions Recorded Confirmed amLODIPine [Norvasc] 10 mg PO QAM 12/27/19 01/08/21 Omeprazole 20 mg PO DAILY 01/08/21 01/08/21 Allergies Allergy/AdvReac Type Severity Reaction Status Date / Time No Known Allergies Allergy Verified 12/02/21 08:54 Review of Systems ROS Statement: Those systems with pertinent positive or pertinent negative responses have been documented in the HPI. ROS Other: All systems not noted in ROS Statement are negative. Past Medical History Past Medical History: GERD/Reflux, Hypertension Additional Past Medical History / Comment(s): " I feel muscle spasms at lower esophagus when I eat and then I feel my heart skips a beat"- stress test neg per pt, eposides of food getting stuck and some diff swallowing, History of Any Multi-Drug Resistant Organisms: None Reported Past Surgical History: Orthopedic Surgery Additional Past Surgical History / Comment(s): rotator cuff right shoulder, EGD, Past Anesthesia/Blood Transfusion Reactions: No Reported Reaction Past Psychological History: No Psychological Hx Reported Smoking Status: Former smoker - Past Family History Father History Unknown: Yes Additional Family Medical History / Comment(s): dad when pt was very young,no known hx General Exam Limitations: no limitations Head exam: Present: atraumatic, normocephalic, normal inspection Eye exam: Present: normal appearance, PERRL, EOMI. Absent: scleral icterus, conjunctival injection, periorbital swelling ENT exam: Present: normal exam, mucous membranes moist Respiratory exam: Present: normal lung sounds bilaterally. Absent: respiratory distress, wheezes, rales, rhonchi, stridor Cardiovascular Exam: Present: regular rate, normal rhythm, normal heart sounds. Absent: systolic murmur, diastolic murmur, rubs, gallop, clicks Extremities exam: Present: other (Right knee full range of motion, neurovascular intact no obvious laxity or obvious deformity. Dominant no pain with valgus or varus laxity) Neurological exam: Present: reflexes normal. Absent: motor sensory deficit Course Vital Signs 12/02/21 08:51 Temperature 98.1 F Pulse Rate 76 Respiratory 18 Rate Blood Pressure 140/84 O2 Sat by Pulse 98 Oximetry Medical Decision Making - Medical Decision Making X-ray is negative for acute abnormality. Patient has right knee sprain. Patient will follow-up with orthopedics for probable MRI. Return parameters were discussed. Disposition Clinical Impression: Right knee sprain Disposition: HOME SELF-CARE Condition: Stable Instructions (If sedation given, give patient instructions): Knee Sprain (ED), Knee Pain (ED) Additional Instructions: Please return to the Emergency Department if symptoms worsen or any other concerns. Is patient prescribed a controlled substance at d/c from ED?: No Referrals: Jaden Zhong MD [Primary Care Provider] - 1-2 days Jean Paul Huerta MD [Medical Doctor] - 1-2 days Time of Disposition: 10:28
--- NOTE | 2021-12-02 09:55 | XR ---
EXAMINATION TYPE: XR knee complete RT DATE OF EXAM: 12/02/2021 CLINICAL HISTORY: Pain after running injury. TECHNIQUE: Three views of the right knee are obtained. COMPARISON: None. FINDINGS: There is no acute fracture/dislocation evident in right knee. Mild tricompartment degenera tive changes. No significant spurring. The overlying soft tissue appears unremarkable. IMPRESSION: There is no acute fracture or dislocation in the right knee.
== END 2021-12-02 10:42 | disposition home or self-care (01) ==
LOC: EC 08:48
DX: S83.91XA Sprain of unspecified site of right knee, initial encounter (principal); K21.9 Gastro-esophageal reflux disease without esophagitis; I10 Essential (primary) hypertension; Z79.83 Long term (current) use of bisphosphonates; Z87.891 Personal history of nicotine dependence
CPT/HCPCS: 99283

== ENCOUNTER 2023-09-08 15:45 | Emergency (ER) | payer OTHER ==
--- NOTE | 2023-09-08 15:56 | ED ---
General Adult HPI - General Stated complaint: Rib pain in R side Time Seen by Provider: 09/08/23 15:45 Source: patient, RN notes reviewed Mode of arrival: ambulatory Limitations: no limitations - History of Present Illness Initial comments: Quick note 53-year-old male presents emergency department chief complaint of right-sided rib pain. Patient states this started after playing some golf last week he states he had no injury or falls or trauma no rashes he states ever since that has had pain with deep inspiration and movement especially twisting. Patient denies any other associated complaints no abdominal pain he does have a history of kidney stones and states that he had kidney stone taken out on that right side in the past. - Related Data Home Medications Medication Instructions Recorded Confirmed amLODIPine [Norvasc] 10 mg PO QAM 12/27/19 01/08/21 Omeprazole 20 mg PO DAILY 01/08/21 01/08/21 Allergies Allergy/AdvReac Type Severity Reaction Status Date / Time No Known Allergies Allergy Verified 09/08/23 16:15 Review of Systems ROS Statement: Those systems with pertinent positive or pertinent negative responses have been documented in the HPI. ROS Other: All systems not noted in ROS Statement are negative. Past Medical History Past Medical History: GERD/Reflux, Hypertension Additional Past Medical History / Comment(s): " I feel muscle spasms at lower esophagus when I eat and then I feel my heart skips a beat"- stress test neg per pt, eposides of food getting stuck and some diff swallowing, History of Any Multi-Drug Resistant Organisms: None Reported Past Surgical History: Orthopedic Surgery Additional Past Surgical History / Comment(s): rotator cuff right shoulder, EGD, Past Anesthesia/Blood Transfusion Reactions: No Reported Reaction Past Psychological History: No Psychological Hx Reported Smoking Status: Former smoker - Past Family History Father History Unknown: Yes Additional Family Medical History / Comment(s): dad when pt was very young,no known hx General Exam - General Exam Comments Initial Comments: Visual Physical Exam Vital signs reviewed General: Well-appearing, nontoxic, no acute distress. Head: Normocephalic, atraumatic Eyes: PERRLA, EOMI ENT: Airway patent Chest: Nonlabored breathing Skin: No visual rash, normal skin tone Neuro: Alert and oriented 3 Musculoskeletal: No gross abnormalities Course Vital Signs 09/08/23 16:13 Temperature 98.2 F Pulse Rate 78 Respiratory 16 Rate Blood Pressure 169/104 O2 Sat by Pulse 99 Oximetry Medical Decision Making - Medical Decision Making I completed the quick note portion of this chart signed Jose Elias Olvera PA-C Patient left AGAINST MEDICAL ADVICE from the waiting room Disposition Clinical Impression: Rib pain on right side Disposition: LEFT AGAINST MEDICAL ADVICE Referrals: Carlos Alberto Zhong MD [Primary Care Provider] - 1-2 days
[2023-09-08 16:43] VITALS: BP 169/104; PULSE 78; RESP 16; TEMP 98.2
--- NOTE | 2023-09-08 17:54 | XR ---
EXAMINATION TYPE: XR ribs RT w pa chest xray DATE OF EXAM: 09/08/2023 COMPARISON: None HISTORY: Pain right flank TECHNIQUE: AP chest 2 view right ribs FINDINGS: Heart size is normal. Pulmonary vasculature is normal. Lungs are clear. No pneumothorax is evident. No displaced rib fractures are evident. IMPRESSION: 1. No acute right rib fractures radiographically apparent. 2. No acute pulmonary process.
== END 2023-09-08 19:21 | disposition left against medical advice (07) ==
LOC: EC 15:45
DX: R07.81 Pleurodynia (principal); Z87.891 Personal history of nicotine dependence; Z53.29 Procedure and treatment not carried out because of patient's decision for other reasons
CPT/HCPCS: 99283